=== PATIENT | male | born 1990 | race Caucasian/White ===

== ENCOUNTER 2021-10-26 17:55 | Emergency (ER) | payer OTHER ==
[2021-10-26] MEDS ORDERED: Ketorolac Tromethamine 30 MG/ML VIAL ONE (19:03)
[2021-10-26 20:39] LABS: Bilirubin Negative (Negative); Blood, Urine Negative (Negative); Clarity Turbid (Clear); Glucose, Urine (Dipstick) Normal (Negative); Ketone, Urine Negative (Negative); Leukocyte Negative Leu/uL (Negative); Nitrite Negative (Negative); Protein, Urine (Dipstick) Negative (Neg-Trace); Specific Gravity, Urine 1.017 (1.002-1.036); Urobilinogen Normal mg/dL (Less than 2)
== END 2021-10-26 21:05 | disposition home or self-care (01) ==
LOC: ERS 17:55
DX: M54.16 Radiculopathy, lumbar region (principal)
CPT/HCPCS: 74177; 81003; 96374; J1885